=== PATIENT | male | born 1945 | race Caucasian/White ===

== ENCOUNTER 2022-09-12 12:30 | Outpatient (CLI) | payer MEDICARE, BC | END 2022-09-12 12:31 | disposition home or self-care (01) | LOC: CSHMRI 12:30 | PROVIDERS: ATTEND Physical Medicine & Rehabilitation | DX: M54.16 Radiculopathy, lumbar region (principal); Z95.0 Presence of cardiac pacemaker; M48.061 Spinal stenosis, lumbar region without neurogenic claudication | CPT/HCPCS: 71045; 72148 ==

== ENCOUNTER 2022-10-17 09:51 | Outpatient (CLI) | payer MEDICARE, BC | END 2022-10-17 09:52 | disposition home or self-care (01) | LOC: CSHRAD 09:51 | PROVIDERS: ATTEND Neurological Surgery | DX: M54.16 Radiculopathy, lumbar region (principal); M47.816 Spondylosis without myelopathy or radiculopathy, lumbar region | CPT/HCPCS: 72120 ==

== ENCOUNTER 2023-09-12 11:31 | Outpatient (CLI) | payer MEDICARE | END 2023-09-12 11:32 | disposition home or self-care (01) | LOC: CSHRAD 11:31 | PROVIDERS: ATTEND Neurological Surgery | DX: Z01.818 Encounter for other preprocedural examination (principal); Z95.0 Presence of cardiac pacemaker; M48.062 Spinal stenosis, lumbar region with neurogenic claudication | CPT/HCPCS: 71045 ==

== ENCOUNTER 2023-09-14 10:24 | Outpatient (CLI) | payer MEDICARE | END 2023-09-14 10:25 | disposition home or self-care (01) | LOC: CSHSPEC 10:24 | PROVIDERS: ATTEND Neurological Surgery | DX: M48.062 Spinal stenosis, lumbar region with neurogenic claudication (principal); M47.816 Spondylosis without myelopathy or radiculopathy, lumbar region | CPT/HCPCS: 72148 ==